=== PATIENT | male | born 1950 | race Two or more races ===

== ENCOUNTER → 2018-08-06 | Outpatient (CLI) | payer BC, MEDICARE ==
[~2018-08-06] MED LIST: CEPHALEXIN500 MG ORAL; NKM; NORCO 5-325 TA1 EACH ORAL
--- NOTE | 2018-08-06 12:36 | Diagnostic Imaging Report ---
Indication: Chest pain Comparison: None 2 views of the chest obtained. Findings: Cardiomediastinal silhouette and pulmonary vascularity are within normal limits for age. The diaphragmatic contour is smooth and costophrenic angles are sharp. No pleural effusions are identified. The bones are unremarkable. Impression: No acute disease
== END | disposition home or self-care (01) ==
LOC: RAD 11:20
DX: R07.9 Chest pain, unspecified (principal)
CPT/HCPCS: 71046

== ENCOUNTER → 2018-08-07 | Outpatient (CLI) | payer MEDICARE ==
--- NOTE | 2018-08-07 16:15 | Diagnostic Imaging Report ---
Indication: Trauma, pain Technique: 3 views left hand Comparison: none Findings: No acute fractures. No dislocations. The joint spaces are preserved. There is evidence of a punctate foreign body within the distal third digit soft tissues Impression: No acute bony trauma Evidence of punctate foreign body within the distal third digit soft tissues Findings discussed by phone with Dr. Menjivar at the time of interpretation
== END | disposition home or self-care (01) ==
LOC: RAD 15:00
DX: S60.512A Abrasion of left hand, initial encounter (principal); L08.9 Local infection of the skin and subcutaneous tissue, unspecified; M79.5 Residual foreign body in soft tissue